=== PATIENT | male | born 1975 | race African-American/Black ===

== ENCOUNTER 2017-08-28 17:32 | Emergency (ER) | payer SELFPAY ==
[2017-08-28] MEDS ORDERED: Lidocaine 1% PF 5 ML VIAL ONE ×2 (17:42→18:04)
[2017-08-28] MEDS ORDERED: Bacitracin Zinc 1 Packet ONE (18:26)
[2017-08-28] MEDS ORDERED: Adacel (T-DAP) 0.5 ML VIAL ONE (18:30)
== END 2017-08-28 18:45 | disposition home or self-care (01) ==
LOC: ERS 17:32
DX: S61.210A Laceration without foreign body of right index finger without damage to nail, initial encounter (principal); W26.0XXA Contact with knife, initial encounter
CPT/HCPCS: 12001; 90471; 90715; J2001